=== PATIENT | male | born 1980 | race African-American/Black ===

== ENCOUNTER 2021-06-26 07:56 | Emergency (ER) | payer SELFPAY ==
[~2021-06-26] VITALS: Ht 172.7 cm; Wt 78.0 kg
[2021-06-26] MEDS ORDERED: LORAZEPAM 0.5MG TABLET PO ONE (08:45)
[2021-06-26] MEDS ORDERED: ACETAMINOPHEN 325MG TABLET PO ONE (09:45)
[2021-06-26 09:46] LABS: BASOPHILS % 0.5 % (0.0-2.0); HEMATOCRIT. 46.9 % (42.0-52.0); HEMOGLOBIN. 16.1 g/dL (14.0-18.0); LYMPHOCYTES % 13.1 % (20.0-50.0); MEAN CORPUSCULAR HEMOGLOBIN 31.7 pg (28.0-32.0); MEAN CORPUSCULAR VOLUME 92.4 fL (80.0-94.0); MEAN PLATELET VOLUME 8.7 fl (7.4-10.4); MONOCYTES % 10.6 % (2.0-8.0); NEUTROPHILS % 75.8 % (40.0-76.0); PLATELET 424 x1000/uL (130-400); RED BLOOD CELL COUNT 5.08 mill/uL (4.7-6.1); RED CELL DISTRIBUTION WIDTH 13.2 % (11.6-14.6)
[2021-06-26 09:55] LABS: CHLORIDE 101 mEq/L (98-107)
[2021-06-26] MEDS ORDERED: HALOPERIDOL LACTATE 5MG/ML VIAL IM STA (11:29)
[2021-06-26] MEDS ORDERED: LORAZEPAM 2MG/ML CPJ IV STA (11:29)
[2021-06-27 04:42] VITALS: BP 110/66
== END 2021-06-27 04:44 | disposition home or self-care (01) ==
LOC: ER 08:16
DX: F15.151 Other stimulant abuse with stimulant-induced psychotic disorder with hallucinations (principal); R51.9 Headache, unspecified; Z59.00 Homelessness unspecified
CPT/HCPCS: 36415; 70450; 80053; 85025; 96372; 96374; 99285; J1630; J2060